=== PATIENT | female | born 1950 | race Caucasian/White ===

== ENCOUNTER → 2016-08-13 | Outpatient (CLI) | payer OTHER ==
--- NOTE | 2016-08-13 09:34 | DX ---
Lumbar Spine, Two Views History: One month follow up post surgery. Comparison: Intraoperative fluoroscopy July 12, 2016. Lumbar spine July 10, 2016. Findings: Interspinous clamps have been placed at L1-L2, L2-L3 and L4-L5. There is 3 mm of retrolisth esis of L1 on L2, 8 mm of anterolisthesis of L4 on L5 and 6 mm of anterolisthesis of L5 on S1 that ar e stable. Dextroscoliosis of the thoracolumbar junction is stable. Retrolisthesis of L3 on L4 is stab le. Moderate vertebral spondylosis, most prominent from L1 through L3 and at L4-L5, is stable. Modera te to severe facet hypertrophy from L2 through S1 is stable. Impression: Interspinous fixation from L1 through L3 and at L4-L5, with otherwise stable appearance o f the lumbar spine.
== END ==
LOC: FIMAGING 09:00
PROVIDERS: ATTEND Orthopaedic Surgery Orthopaedic Surgery of the Spine
DX: Z98.1 Arthrodesis status (principal)

== ENCOUNTER → 2016-10-01 | Outpatient (CLI) | payer OTHER | LOC: FIMAGING 12:56 | PROVIDERS: ATTEND Orthopaedic Surgery Orthopaedic Surgery of the Spine | DX: Z09 Encounter for follow-up examination after completed treatment for conditions other than malignant neoplasm (principal); Z98.890 Other specified postprocedural states; M43.16 Spondylolisthesis, lumbar region ==

== ENCOUNTER → 2017-01-30 | Outpatient (CLI) | payer OTHER | LOC: FIMAGING 08:38 | PROVIDERS: ATTEND Orthopaedic Surgery Orthopaedic Surgery of the Spine | DX: M41.86 Other forms of scoliosis, lumbar region (principal); M47.896 Other spondylosis, lumbar region; M43.16 Spondylolisthesis, lumbar region; Z98.1 Arthrodesis status ==

== ENCOUNTER 2017-04-04 09:42 | Observation (INO) | payer OTHER ==
--- NOTE | 2017-04-04 10:22 | CPEKG ---
Heart Rate: 49 RR Interval: 1224 P-R Interval: 156 QRSD Interval: 84 QT Interval: 452 QTC Interval: 409 P [place]: 60 QRS [place]: 36 T Wave [place]: 33 EKG Severity - OTHERWISE NORMAL ECG - EKG Impression: SINUS BRADYCARDIA Electronically Signed By: Marcos Montes 04-Apr-2017 15:55:36
[2017-04-04 10:47] LABS: % IMMATURE GRANULYOCYTES 0.3 % (0.0-1.1); ABSOLUTE IMMATURE GRANULOCYTES 0.01 10^3/uL (0.00-0.10); ADD DIFF? NO; ADD MORPH? NO; ADD SCAN? NO; ATYPICAL LYMPHOCYTE FLAG 0 (0-99); FRAGMENT RBC FLAG 0 (0-99); HEMATOCRIT 36.7 % (38.0-47.0); HEMOGLOBIN 12.6 g/dL (12.6-16.3); LEFT SHIFT FLG 0 (0-99); LIPEMIA HEMOLYSIS FLAG 90 (0-99); MEAN CELL HEMOGLOBIN 31.6 pg (27.9-34.1); MEAN CELL HEMOGLOBIN CONCENTR. 34.3 g/dL (32.4-36.7); MEAN PLATELET VOLUME 9.3 fL (8.7-11.7); PLATELET CLUMPS FLAG 10 (0-99); PLATELET COUNT 338 10^3/uL (150-400); RED BLOOD CELL COUNT 3.99 10^6/uL (4.18-5.33); RED CELL DISTRIBUTION WIDTH 13.6 % (11.5-15.2)
[2017-04-04 11:01] LABS: ANION GAP 10 mEq/L (8-16); CALCIUM 9.4 mg/dL (8.5-10.4); CARBON DIOXIDE 25 mEq/l (22-31); CHLORIDE 94 mEq/L (97-110); CREATININE 0.7 mg/dL (0.6-1.0); GLOMERULAR FILTRATION RATE > 60; GLUCOSE 77 mg/dL (70-100); POTASSIUM 3.8 mEq/L (3.5-5.2); SODIUM 129 mEq/L (134-144)
[2017-04-04 11:13] LABS: TROPONIN I < 0.012 ng/mL (0.000-0.034)
[2017-04-04] MEDS ORDERED: ACETAMINOPHEN 500 MG TAB PO ONE (12:14)
[2017-04-04 13:10] LABS: COLOR COLORLESS; LEUKOCYTE ESTERASE,URINE NEGATIVE (NEGATIVE); NITRITE,URINE NEGATIVE (NEGATIVE)
[2017-04-04] MEDS ORDERED: ONDANSETRON DISINTEGRATING 4 MG TAB PO PRN (13:29)
[2017-04-04] MEDS ORDERED: ACETAMINOPHEN 325 MG TAB PO PRN (13:29)
[2017-04-04] MEDS ORDERED: ONDANSETRON 4 MG/2 ML VIAL IVP PRN (13:29)
[2017-04-04] MEDS ORDERED: OXYCODONE/APAP 5/325 TAB PO PRN (13:39)
--- NOTE | 2017-04-04 14:16 | EDPHY ---
H & P Time Seen by Provider: 04/04/17 10:23 HPI/ROS: CHIEF COMPLAINT: Headache, facial numbness, diarrhea HISTORY OF PRESENT ILLNESS: 67-year-old female presents to the emergency department by private vehicle complaining headache that woke her up yesterday morning. She describes severe frontal headache. No visual changes. No neck pain. No reported trauma. She states last evening she developed some facial numbness to the left lower chin extending into the left cheek. When she woke up this morning she had persisting headache, persisting facial numbness, and then her left eye was twitching. She presented to the emergency department for evaluation. She has had some cramping abdominal pain intermittently over last few days. She had some watery diarrhea as well. No blood in her stools. No vomiting. No chest pain or difficulty breathing. No known fevers. No recent travel. REVIEW OF SYSTEMS: Constitutional: No fever, no chills. Eyes: No double or blurry vision. ENT: No sore throat. Respiratory: No cough, no shortness of breath. Cardiac: No chest pain. Gastrointestinal: Diarrhea, abdominal cramping as above. No vomiting. Genitourinary: No dysuria. Musculoskeletal: No neck or back pain. Skin: No rashes. Neurological: headache. Past Medical/Surgical History: Orthopedic surgery, ischemic colitis, rheumatoid arthritis, heart murmur Social History: and lives in [place] Smoking Status: Never smoked Physical Exam: General Appearance: Alert, no distress. Afebrile. Nontoxic appearing. Eyes: Pupils equal and round. Extraocular motions are all intact. ENT: Mouth: Mucous membranes moist. Respiratory: No wheezing, rhonchi, or rales, lungs are clear to auscultation. Cardiovascular: Regular rate and rhythm with 2/6 systolic ejection murmur. Gastrointestinal: Abdomen is soft and nontender, no masses, no rebound or guarding, bowel sounds normal. Neurological: Alert and oriented x 3, cranial nerves II through XII grossly intact with the exception of slightly decreased sensation to light touch to the left lower cheek. Skin: Warm and dry, no rashes. Musculoskeletal: Nontender to palpate along the cervical, thoracic or lumbar spine. Neck is supple. Extremities: Full range of motion and no peripheral edema. Upper and lower extremities of equal strength bilaterally. Psychiatric: Patient is oriented X 3, there is no agitation. Constitutional: Initial Vital Signs Temperature (C) 36.7 C 04/04/17 09:44 Heart Rate 60 04/04/17 09:44 Respiratory Rate 18 04/04/17 09:44 Blood Pressure 129/81 H 04/04/17 09:44 O2 Sat (%) 95 04/04/17 09:44 O2 Delivery Mode Room Air Allergies/Adverse Reactions: No Known Allergies Allergy (Verified 07/09/16 12:44) Home Medications: Medication Instructions Recorded Cholecalciferol Vit D3 [Vitamin D3 1,000 units PO HS 04/04/17 (*)] Diclofenac Sodium [Voltaren 75 MG 75 mg PO DAILY PRN 04/04/17 (*)] Estradiol [Estrace Vaginal (*)] 1 gm VG HS PRN 04/04/17 FLUoxetine [Prozac 20 MG (*)] 40 mg PO HS 04/04/17 Herbals/Supplements -Info Only 1 ea PO DAILY 04/04/17 Hydrochlorothiazide [HCTZ (*)] 25 mg PO DAILY PRN 04/04/17 Leflunomide [Arava 20 mg (*)] 20 mg PO HS 04/04/17 Dukedom-3 Fatty Acids [Fish Oil 1000 1,000 mg PO BID 04/04/17 mg (*)] Zaleplon [ZALEPLON] 10 mg PO HS PRN 04/04/17 Medical Decision Making - Diagnostics Imaging Results: Imaging Impressions Head CT 04/04/17 10:42 Impression: Normal. Results called and discussed with Melyssa Villanueva at 04/04/2017 11:44. Imaging: Discussed imaging studies w/ call center assistant Radiologist ED Course/Re-evaluation: 67-year-old female presents to the emergency department with headache, facial numbness and diarrhea. Laboratory studies reveal normal white blood cell count. Her sodium is slightly low at 129. She has been hyponatremic in the past. The case was discussed with Dr. Mckenzie, secondary supervising physician, who did not directly evaluate the patient but agrees with treatment plan. CT scan of head without contrast reveals nothing acute. Because the patient continues to have ongoing headache and left-sided facial numbness, I was concerned about possible TIA. The patient will be admitted to hospitalist. I spoke with Dr. Marcos Campbell, he recommended ordering bilateral carotid Doppler ultrasound and echocardiogram. Carotid Doppler ultrasound was normal. This was reported to me by Dr. Wilner Freitas at 2:13 p.m.. Differential Diagnosis: Headache including but not limited to subarachnoid hemorrhage, migraine headache , tension headache and infectious causes such as meningitis, pharyngitis and sinusitis. - Data Points Laboratory Results: Laboratory Results 04/04/17 10:20 04/04/17 10:20 04/04/17 04/04/17 10:20 10:20 WBC 3.74 10^3/uL L 10^3/uL (3.80-9.50) RBC 3.99 10^6/uL L 10^6/uL (4.18-5.33) Hgb 12.6 g/dL g/dL (12.6-16.3) Hct 36.7 % L % (38.0-47.0) MCV 92.0 fL fL (81.5-99.8) MCH 31.6 pg pg (27.9-34.1) MCHC 34.3 g/dL g/dL (32.4-36.7) RDW 13.6 % % (11.5-15.2) Plt Count 338 10^3/uL 10^3/uL (150-400) MPV 9.3 fL fL (8.7-11.7) Neut % (Auto) 54.3 % % (39.3-74.2) Lymph % (Auto) 26.5 % % (15.0-45.0) Jay % (Auto) 12.8 % % (4.5-13.0) Eos % (Auto) 4.8 % % (0.6-7.6) Baso % (Auto) 1.3 % % (0.3-1.7) Nucleat RBC Rel Count 0.0 % % (0.0-0.2) Absolute Neuts (auto) 2.03 10^3/uL 10^3/uL (1.70-6.50) Absolute Lymphs (auto) 0.99 10^3/uL L 10^3/uL (1.00-3.00) Absolute Monos (auto) 0.48 10^3/uL 10^3/uL (0.30-0.80) Absolute Eos (auto) 0.18 10^3/uL 10^3/uL (0.03-0.40) Absolute Basos (auto) 0.05 10^3/uL 10^3/uL (0.02-0.10) Absolute Nucleated RBC 0.00 10^3/uL 10^3/uL (0-0.01) Immature Gran % 0.3 % % (0.0-1.1) Immature Gran # 0.01 10^3/uL 10^3/uL (0.00-0.10) Sodium 129 mEq/L L mEq/L (134-144) Potassium 3.8 mEq/L mEq/L (3.5-5.2) Chloride 94 mEq/L L mEq/L (97-110) Carbon Dioxide 25 mEq/l mEq/l (22-31) Anion Gap 10 mEq/L mEq/L (8-16) BUN 12 mg/dL mg/dL (7-23) Creatinine 0.7 mg/dL mg/dL (0.6-1.0) Estimated GFR > 60 Glucose 77 mg/dL mg/dL (70-100) Calcium 9.4 mg/dL mg/dL (8.5-10.4) Troponin I < 0.012 ng/mL ng/mL (0.000-0.034) Medications Given: Discontinued Medications Acetaminophen (Tylenol) 1,000 mg PO EDNOW ONE Stop: 04/04/17 12:15 Last Admin: 04/04/17 12:59 Dose: 1,000 mg Departure - Departure Disposition: Home, Routine, Self-Care Clinical Impression: Facial numbness, Hyponatremia Headache Qualifiers: Headache type: unspecified Headache chronicity pattern: acute headache Intractability: not intractable Qualified Code(s): R51 - Headache Diarrhea Qualifiers: Diarrhea type: unspecified type Qualified Code(s): R19.7 - Diarrhea, unspecified Condition: Good
--- NOTE | 2017-04-04 14:41 | GHP ---
[f rep st] HISTORY AND PHYSICAL DATE OF ADMISSION: 04/04/2017 CHIEF COMPLAINT: Left facial numbness. HISTORY OF PRESENT ILLNESS: This is a 67-year-old female who reports she is having left facial numb ness. The history of this begins approximately 2 days [employer] when she had abdominal cramping following eating an apple. The abdominal cramping persisted for 1-2 hours, at which time, she had a loose st ool, then had a 2nd loose stool, and then had 3 or 4 more loose watery stools without signs of blood . The cramping seemed to subside at that time. She slept well the following night. One day [employer] yareli marie woke and had a headache in the frontal region. She rates it between a 5 and 7/10, deep and aching , not associated with nausea, vomiting, diplopia, or neurologic symptoms. The headache waxed and wa felisa throughout the day. She continued to have some cramping abdominal pain that day, but did not mo ve her bowels. The morning before admission at 2 a.m. she then awoke and noted she had a tingling a nd kind of burning sensation on the left side of her face. She was concerned she might be having a stroke, so she noted that she did not have left hand or left foot weakness. The burning comes and g oes, but had been persistent and persisted up until the time of admission. She denies any trauma to the face, change in hearing, ringing in her ears, no nasal drainage, recent URI or cough, and no cl ear diplopia or vision disturbance. Her has also noted that she has not had a speech proble m nor any difficulty ambulating. It is of special note that she usually does not have headaches and has only had headaches intermittently in the last 2 months for unknown reasons. Recently this new headache has been associated with low back pain, yet she attributed her low back pain to lifting box es and helping her daughter move. The patient does have a history of low back pain and is status po st 2 surgeries to her lower back. She had an L4-L5 synovial cyst removal by Dr. Garces in 2005. She then in 2015 had an L1 through L4 laminectomy and stabilization by Dr. Beck. PAST MEDICAL HISTORY: 1. Osteopenia for many years. 2. Rheumatoid arthritis currently treated with leflunomide. 3. Ischemic bowel episode in 12/2014. 4. Depression. PAST SURGICAL HISTORY: 1. Herniorrhaphy. 2. Right-sided bunionectomy. 3. Left shoulder surgery. 4. Right synovial L4-L5 cyst removal in 2005. 5. Left hip arthroplasty. ALLERGIES: No known allergies. CURRENT MEDICATIONS: In the EMR and will be reconciled when available. REVIEW OF SYSTEMS: Recently the patient has felt well up until the onset of this cramping abdominal pain. She denies recent upper respiratory infection, sore throat, cough. She usually does not suf itz from headaches. The low back pain came on after doing exercise. She denies prior history of co ronary artery disease, cardiac rhythm disturbance, or episodes of syncope, dizziness, or vertigo. T here is no prior history of pulmonary disease and no use of inhalers. The abdominal history is as n oted above. She has never had an episode of GI bleeding. : She denies dysuria, frequency, or pr ior renal impairment or kidney infections. MUSCULOSKELETAL: Significant for rheumatoid arthritis w ithout a recent flare. PSYCHIATRIC: History of depression, but she has never been hospitalized or severely impaired. SOCIAL HISTORY: She is , accompanied by her today. She has never smoked. She drink s alcohol socially and never in abuse. She does not use marijuana or recreational drugs. PHYSICAL EXAMINATION: GENERAL: This is a pleasant, alert female who appears in no distress but young s complain that the left side of her face feels different than the right and she describes it as num bness. Her speech is quite articulate at a normal rate, and easy to understand. She denies tongue difficulty, swallowing difficulties, but reports that maybe the left side of her tongue is numb. WES SIGNS: Normal. Blood pressure, pulse, respirations are normal. She has adequate oxygenation o n room air. HEENT: No signs of trauma. The face is symmetrical and her smile and speech are koffi l. Tympanic membranes could not be seen as the otoscope was nonfunctional in the emergency departme nt, although pull of each pinna resulted in no pain. The left TMJ joint was nontender to palpation, no overlying erythema, and had no clicking or pain or tenderness with opening of the jaw. The jaw articulates normally. Tongue, buccal mucosa are normal. There are no oral lesions. NECK: Supple without meningismus. LUNGS: Clear to P and A without wheezing or rales. HEART: Singular S1, S2. Soft CHELSI along the LSB is noted, grade 1/6. No AI is appreciated. No precordial heave. ABDOMEN: Nontender, benign, without masses, tenderness, organomegaly. EXTREMITIES: No edema, cyanosis, or clubbing. NEUROLOGIC: An oriented x3, pleasant and articulate female without speech difficulties. Cranial nerves 2-12 are intact to specific testing. Motor and sensory function are intact. The on ly abnormality that is subjective is that the left side of her face in the lower face she says feels differently and slightly numb than the right side of her face, representing a peripheral 7th nerve issue. LABORATORY: Her CBC is normal except for a very slightly low white count at 3700. Her chemistry pa remy shows hyponatremia with a sodium of 129 with a normal troponin level and glucose. Renal functio n is normal. Urinalysis is entirely clear. ECG shows a sinus bradycardia with normal DC, QRS inter vals, and except for the bradycardia is normal to my reading. I have discussed the matter with the emergency physician seeing the patient and interviewed the patient. A carotid Doppler ultrasound is being ordered. CT scan of the head has also been reviewed by myself and shows no signs of intracranial hemorrhage, mass effect, or infarction. The x-ray was reviewed by myself on the PACS system. ASSESSMENT: Acute left-sided facial numbness. The distribution of this would represent a periphera l 7th nerve palsy possibly, or the onset of a herpes zoster. At this point, there is no rash to rep resent the latter and the finding of numbness on the left side of her face is subjective, although i t is persistent. In addition, she normally does not have headaches but is reporting she is having h eadaches. With the complex of a headache, left-sided facial numbness without other motor findings a nd some low back pain, could represent a problem of a sentinel leak. Following that line of nataly quinteros, her headache is present but not very severe, nor is it at the base of her skull; it is in the fro nt in the ethmoid region. Currently, this constellation of symptoms does not fit well together. Ne urology will be consulted as to whether further evaluation for cerebral ischemia should be pursued. Chronic medical problems include her rheumatoid arthritis, which is currently under treatment, and her depression. PLAN: The patient will be admitted to observation status. Neurology consult will be obtained. Her code status is full and her power of christmas tree farm worker is her . The admission required 55 minutes. /[id number]/MODL
[2017-04-04] MEDS ORDERED: GADOBUTROL 10 ML VIAL IVP ONE (16:48)
[2017-04-04] MEDS ORDERED: ESTRADIOL 42.5 GM CRTUBE VG PRN (16:52)
[2017-04-04] MEDS ORDERED: DICLOFENAC SODIUM 75 MG TAB PO PRN (16:52)
[2017-04-04 17:01] LABS: ALANINE AMINOTRANSFERASE 39 IU/L (9-52); ALBUMIN 3.1 g/dL (3.5-5.0); ALKALINE PHOSPHATASE 42 IU/L (38-126); ANION GAP 5 mEq/L (8-16); ASPARTATE AMINOTRANSFERASE 30 IU/L (14-46); BILIRUBIN,TOTAL 0.8 mg/dL (0.1-1.4); CARBON DIOXIDE 24 mEq/l (22-31); CHLORIDE 99 mEq/L (97-110); CREATININE 0.7 mg/dL (0.6-1.0); GLOMERULAR FILTRATION RATE > 60; GLUCOSE 125 mg/dL (70-100); POTASSIUM 3.7 mEq/L (3.5-5.2); SODIUM 128 mEq/L (134-144); TOTAL PROTEIN 5.5 g/dL (6.3-8.2)
--- NOTE | 2017-04-04 18:01 | GCON ---
[f rep st] CONSULTATION REASON FOR CONSULTATION: The patient is a 67-year-old woman, who I am asked to see in neurologic co nsultation from Dr. Campbell. She says that she has a chief complaint of abnormal sensation in her l eft face. History is obtained from the patient directly, who is a very good historian, as well as stephanie eng of the medical records. She does not have any history of neurologic problems. She came to the emergency department yesterda y afternoon and was complaining of some headache and facial numbness and had some diarrhea. She had a headache that occurred the morning prior to her coming to the hospital. She says she got up from bed to go to the bathroom and felt an acute burning pain in her left perioral region and into the l eft cheek. She says it was like being on fire. That lasted a few minutes and was immediately follo wed by a sense of numbness or tingling. She equates this to the phenomenon of getting Novocain. Hernan marie immediately checked her face in the mirror to see if there was any abnormal facial movement or wea kness and she never saw any. She went to sleep as the pain had fairly quickly decreased and then wo ke up this morning and noticed that it was still numb in that area and felt abnormal to touch. The head pain has never been severe. It is in the left periorbital region. Sometimes she has a little bit of twitching she has noticed around the left eyelid. No change in speech or swallowing. She says that about a week ago she had a rash on her chin and went to the car body mechanic and did not have a specific diagnosis for that but she also had a prominent cold sore in her left upper lip, whi ch she has had once before. That has since resolved. She has not described any other rash since . There has not been confusion. She has not had fever or chills. She has had some abdominal liudmila n over the last 48 hours and some watery diarrhea. REVIEW OF SYSTEMS: A 10-point Review of Systems completed and unremarkable except for that noted ab ove. No clear-cut alleviating or exacerbating factors and for the most part, symptoms are fairly mi ld now. PAST MEDICAL HISTORY: Notable for rotator cuff problems on the left, spine disease with prior surge ry, ischemic colitis, rheumatoid arthritis treated with leflunomide, heart murmur. SOCIAL HISTORY: She is and lives in [place]. No smoking or alcohol abuse. FAMILY HISTORY: Noncontributory for the most part. PHYSICAL EXAM: VITAL SIGNS: Blood pressure is 117/73, pulse of 56, respirations 18, temperature 36 .6. GENERAL: She is a healthy-appearing woman, lying in the bed in no acute distress. NECK: Supp le with no bruits or masses. CARDIAC: Has a 2/6 systolic murmur. HEENT: There is no facial rash or oropharyngeal lesions. I can't see evidence of the old cold sore. NEUROLOGIC: She is awake, al ert, and attentive. Fully oriented with normal cognition and language skills. Pupils are 2 mm and reactive. Extraocular movements intact. Normal facial strength. There is a decreased sensory perc eption in the left maxillary and mandibular divisions of the trigeminal nerve with touch and tempera ture being slightly different. Hearing is preserved. Palate elevates symmetrically. Tongue protru josefina midline. MOTOR: Reveals normal muscle bulk and tone and 5/5 strength except for the mechanical weakness of the proximal left upper extremity from old left rotator cuff problems. No sensory loss in the extremities. No ataxia on [id number]. Reflexes are 1+. LABORATORY STUDIES: White count of 3700. Sodium of 129, chloride 94. Urinalysis is clear. Her head CT is normal. Carotid ultrasound shows no hemodynamically significant stenoses or ulcers o r plaquing. IMPRESSION: The patient is giving symptoms of acute left trigeminal nerve dysfunction starting last evening with a searing burning sensation for a few minutes and then persisting tingling or numbness . This presentation is probably not related to acute cerebral ischemia in the brainstem with lack o f any other findings and has aspects consistent with an acute trigeminal neuropathy or neuralgia. T he fact that she had a cold sore week ago in the left upper lip and perhaps some rash on the chin of uncertain cause, suggest this might be an acute viral syndrome of a herpes virus. I am not sure wh at to make of the gastrointestinal complaints. Leflunomide has immunosuppressant effects and could put her at increased risk for developing viral syndromes. I would not say this fits the criteria fo r herpes zoster but we should also monitor for any changes in the skin with a new rash appearing in the trigeminal distribution. For now, I would like to get a brain MRI, just to confirm there is no specific, unique pathology of the left trigeminal nerve but is probably purely inflammatory rather than structural in origin and h opefully will just resolve. There is not currently an indication for treatment with medications suc h as carbamazepine and acute antiviral therapy is not clearly indicated at this stage. I spoke to t rosa patient in detail and explained this condition and she seems comfortable with her understanding. I will follow up based on the results of MRI. Total unit time of 70 minutes was spent, greater than 50% of the time counseling and coordination of care. /[id number]/MODL
[2017-04-04] MEDS ORDERED: CHOLECALCIFEROL VIT D3 1,000 UNITS TAB PO SCH (21:00)
[2017-04-04] MEDS ORDERED: LEFLUNOMIDE 20 MG TAB PO SCH (21:00)
[2017-04-04] MEDS ORDERED: FLUoxetine 20 MG CAP PO SCH (21:00)
[2017-04-04] MEDS: OMEGA-3 FATTY ACIDS 1,000 MG CAP PO SCH (21:43)
[2017-04-04] MEDS: ZOLPIDEM TARTRATE 5 MG TAB PO PRN (21:43)
[2017-04-05] MEDS: ZOLPIDEM TARTRATE 5 MG TAB PO PRN (03:48)
[2017-04-05 03:53] VITALS: O2SAT 92
[2017-04-05 07:51] VITALS: BP 94/56; PULSE 58; RESP 16; TEMP 98.8
[2017-04-05] MEDS: OMEGA-3 FATTY ACIDS 1,000 MG CAP PO SCH (08:08)
--- NOTE | 2017-04-05 08:35 | NEUROPROG ---
Assessment: The patient has not experienced a stroke. She has some left trigeminal neuropathy with paresthesias and decreased sensation and some mild involvement of the 7th nerve with fasciculations around the left eye and some enhancement on MRI of the 7th nerve indicative of mild inflammation. Hyper this point, there is not a clear-cut indication for any specific therapy other than observation and this can be done as an outpatient. The plan from my perspective would be follow-up with me as needed. She should talk to her search coordinator about the possibility of doing episodic Valtrex if there were recurrent cold sores determining if suppressive antiviral therapy would be appropriate or not. I would defer to that provider or primary care on that issue. She is followed by Nasrin Montanez as an outpatient. Exactly what accounts for the overall presentation remains uncertain, but the likelihood of something worse than a viral syndrome or inflammatory process is unlikely. Lymphomas and other causes for cranial neuropathies are considered low probability, but any failure for this to resolve or progression of symptoms could warrant repeat imaging or even CSF analysis. I just do not believe that is needed at this point and the patient is comfortable with all of this. Total unit time 25 minutes with greater than 50% of the time counseling and coordination of care as outlined above. Subjective: The patient reports that she still has some twitching in the left eyelid at times and some mild numb sensations in left face and upper gumline. There is no significant pain and no other new symptoms. Objective: Vital Signs Temp Pulse Resp BP Pulse Ox 37.1 C 58 L 16 94/56 L 92 04/05/17 07:50 04/05/17 07:50 04/05/17 07:50 04/05/17 07:50 04/05/17 07:50 Laboratory Results 04/04/17 16:31 04/04/17 04/05/17 04/06/17 05:59 05:59 05:59 Intake Total 550 Output Total 800 Balance -250 Unremarkable exam at this point other than the decreased sensation in the left face and occasional fasciculations in the left orbicularis oculus. The brain MRI does not show any brain lesions to explain symptoms, but there is some enhancement of the left 7th nerve indicating some mild inflammation. This would not explain facial numbness because that is the distribution of the trigeminal nerve, but could account for why there are some fasciculations. Allergies/Adverse Reactions: No Known Allergies Allergy (Verified 07/09/16 12:44)
--- NOTE | 2017-04-05 10:11 | ECHO ---
[id number] + + [address] : : [place] [address] : : [phone] + + Adult Echocardiographic Report + -----+ :Name: RADHA CARTWRIGHT JStudy Date: 04/04/2017 02:04 PM : : Hospital Admission Number: [id number] Location : 5: :: 1950 Gender: Female Height: 63 in : :Age: 67 yrs Race: WH Weight: 126 lb : :Reason For Study: Eval LV Fx : : BSA: 1.6 meters2 : :History: Murmur, Left face numbness : + -----+ MMode/2D Measurements \T\ Calculations IVSd: 0.56 cm LVIDd: 5.0 cm FS: 40.6 % Ao root diam: 3.1 cm LVPWd: 0.84 cm LVIDs: 3.0 cm EDV(Teich): 119.3 ml ACS: 2.0 cm ESV(Teich): 34.4 ml EF(Teich): 71.1 % Normal Measurement Values: + + :LVIDd (3.5-5.7cm) IVSd (0.6-1.1cm) LVPWd (0.6-1.1cm) Aortic Root (2.0-3.7cm)Left Atrium (1.5-4.0cm): :LV Vol(d) (76-115ml) LV Vol(s) (29-48ml) Ejec Fraction (50-65%)PV Jemal (0.6- 1.2m/s) TV Jemal (0.4-1.0m/s) : :MV E Jemal (0.8-1.0m/s)MV A Jemal (0.3-1.0m/s)LVOT Jemal (0.7-1.2m/s) Asc Ao Jemal ( 0.9-1.8m/s) : + + Doppler Measurements \T\ Calculations MV E max jemal: Ao V2 max: LV V1 max: PA V2 max: 85.9 cm/sec 103.0 cm/sec 96.7 cm/sec 69.2 cm/sec MV A max jemal: Ao max P.2 mmHgLV V1 max PG: PA max P.2 cm/sec 3.7 mmHg 1.9 mmHg MV E/A: 1.4 TR max jemal: 246.0 cm/sec TR max P.2 mmHg RAP systole: 5.0 mmHg RVSP(TR): 29.2 mmHg Left Ventricle The left ventricle is normal in size and function. There is normal left ventricular wall thickness. The left ventricular ejection fraction is normal. Ejection Fraction = 72%. There is Doppler evidence for diastolic dysfunction. The left ventricular wall motion is normal. Right Ventricle The right ventricle is normal in size and function. Atria The left atrial size is normal. Right atrial size is normal. Mitral Valve The mitral valve is normal in structure and function. There is no mitral regurgitation noted. Tricuspid Valve Normal tricuspid valve. There is mild tricuspid regurgitation. Right ventricular systolic pressure is normal. Aortic Valve The aortic valve is normal in structure and function. The aortic valve opens well. The aortic valve is trileaflet. There is no aortic stenosis. There is no aortic insufficiency. Pulmonic Valve The pulmonic valve is not well visualized. There is no pulmonic valvular regurgitation. Great Vessels The aortic root is normal size. Pericardium/Pleural There is no pericardial effusion. Conclusion A complete two-dimensional transthoracic echocardiogram was performed (2D, M-mode, Doppler and color flow Doppler). (1) Left ventricular systolic ejection fraction was normal (>70%) - normal wall motion (2) No left ventricular hypertrophy (3) Diastolic dysfunction was present (4) Normal right ventricular size and function (5) Normal atrial dimensions (6) Grossly normal mitral valve (7) Trileaflet aortic valve without sclerosis or insufficiency (8) Mild tricuspid regurgitation - RVSP was within normal limits (9) Poor visualization of the pulmonic valve (10) No comparison echocardiograms Final Reading Physician: Kym Giron signed on 04/05/2017 10:09 AM Ordering Physician: JANESSA CEVALLOS Performed By: Fletcher Levine, CS
--- NOTE | 2017-04-05 12:04 | GDS ---
[f rep st] DISCHARGE SUMMARY NEW AND ACUTE DIAGNOSES ON THIS ADMISSION: 1. Acute 7th and 5th nerve neuritis with left-sided facial tingling. 2. Chronic medical problems. 3. She has rheumatoid arthritis, currently under treatment with leflunomide. CONSULTATION: Neurology. PROCEDURE: 1. MRI of the brain showing left descending 7th cranial neuritis. Normal left trigeminal nerve. 2. Echocardiogram showing a normal left ventricular ejection fraction 70%. Diastolic dysfunction i s present. RVSP is normal. No valvular abnormalities noted. HOSPITAL COURSE: A 67-year-old female presented with left-sided facial tingling without other neuro logic deficits. She had a headache for the [address] scan of the head was normal. MRI o f the brain with contrast showed left 7th cranial nerve neuritis with a normal left 5th nerve. Pitts tid Doppler studies showed no hemodynamic significant stenosis by systolic velocity criteria. Consu ltation with Neurology indicated that the left facial numbness and tingling was in fact present, but seemed to be isolated. Historically there did not seem to be much progression, and consultation in dicated that there was no specific reason to pursue further evaluation, as the etiology is unknown, and it is expected that it should resolve. Possibilities are that if her headache would worsen or t he sensory and/or motor deficit should worsen, although she has no motor deficit at this time, if th telly should worsen, then further evaluation would be warranted, perhaps with a lumbar spine puncture. Neurology felt that there was currently no indication for treatment with medications, nor is there any clear indication for acute antiviral therapy. 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 This occurs appro ximately once a year, and does not seem to be an appropriate indication for chronic antiviral suppre ssive therapy. DISCHARGE MEDICATIONS: The same as her admission medications and are as follows: Zaleplon 10 mg h. s., leflunomide 20 mg h.s., HCTZ 25 mg p.r.n. swelling and edema, Prozac 40 mg h.s., vitamin D3 1,00 0 units h.s., omega-3 fatty acids 1,000 mg p.o. b.i.d., herbal supplementation, Estrace cream used p .r.n., and Voltaren 75 mg p.o. daily p.r.n. arthritis pain. PLAN: The patient will follow up with her PCP, Dai Montanez, in approximately 1-2 weeks just to julian pederson on the progression of the problem. She also will follow up with Dr. Darin Fernandez if the prob blanca should perceive to be becoming worse. Matters to be addressed at the first followup: Assess the degree of her headache and the sensory fu nction of the left side of her face. At discharge, she has no motor deficit, but only a sensation o f numbness on the left side of her face, on the lower face, not the upper face, consistent with a pe ripheral 7th nerve or trigeminal nerve involvement, although the 7th nerve is the only one showing i nflammation on the MRI scan. TIME: This discharge required 45 minutes, greater than 50% to primary counselor and coordinate and explained all questions to the patient and her . All questions were answered. /[id number]/MODL
--- NOTE | 2017-04-06 09:08 | ASDISCHSUM ---
Discharge Information Plan Status:Home with No Needs Medically Cleared to Leave: Discharge Date:04/05/2017 11:53 AM CM D/C Disposition: ADT D/C Disposition:Home, Routine, Self-Care Projected Discharge Date:04/05/2017 11:53 AM Transportation at D/C: Discharge Delay Reason: Follow-Up Date:04/05/2017 11:53 AM Discharge Slot: Final Diagnosis: Placement Information Patient Contact Information Contact Name:HEAVEN Relationship: Address:[address] City:[place] Alternate Phone: [facility]/Zip Code:[place] [address] Email: Financial Information Financial Class:Medicare Advantage Plans Primary Plan Desc:NATI SHANNON MEDICARE Primary Plan Number:[id number] Secondary Plan Desc: Secondary Plan Number: Assessment Information Intervention Information Intervention Type:*HORACE-Signed Date of Service:04/05/2017 10:28 AM Patient Type:Observation Staff Member:Janet Holman Hours: Discipline: Severity: Comment:
== END 2017-04-05 11:53 | disposition home or self-care (01) ==
LOC: F3N 14:41
PROVIDERS: ADMIT Internal Medicine Pulmonary Disease; ATTEND Internal Medicine Pulmonary Disease
DX: G51.0 Bell's palsy (principal); G51.8 Other disorders of facial nerve; M06.9 Rheumatoid arthritis, unspecified; R19.7 Diarrhea, unspecified; E87.1 Hypo-osmolality and hyponatremia; M85.80 Other specified disorders of bone density and structure, unspecified site
CPT/HCPCS: 70450; 70553; 93005; 93306; 93880; 99285; A9585; G0378

== ENCOUNTER → 2017-06-12 | Outpatient (CLI) | payer OTHER | LOC: FIMAGING 07:54 | PROVIDERS: ATTEND Physician Assistant | DX: Z12.31 Encounter for screening mammogram for malignant neoplasm of breast (principal) | CPT/HCPCS: G0202 ==

== ENCOUNTER 2018-12-03 09:10 | Inpatient (IN) | payer OTHER ==
--- NOTE | 2018-12-03 07:12 | PDHPUP ---
History & Physical Update H&P update statement: This history and physical update is based on an assessment of the patient which was completed after admission or registration (within 24 hours), but prior to the surgery/procedure. H&P update: H&P reviewed & patient examined, no change in patient's condition since H&P completed
[~2018-12-03 09:10] MED LIST: ROPIVACAINE 0.2% 80 MG, EPINEPHrine 0.2 MG, KETOROLAC TROMETHAMINE 30 MG in SYRINGE 0 ML IU ONE; TRANEXAMIC ACID 3,000 MG in NS (SYRINGE) 50 ML IRR ONE; TRANEXAMIC ACID 3,000 MG/50 ML BAG IRR ONE
[2018-12-03] MEDS ORDERED: FAMOTIDINE 20 MG TAB PO ONE (09:36)
[2018-12-03] MEDS ORDERED: ACETAMINOPHEN 325 MG TAB PO ONE (09:36)
[2018-12-03] MEDS ORDERED: ceFAZolin 2 GM/DEXTROSE 100 ML IV ONE (09:36)
[2018-12-03] MEDS ORDERED: DEXAMETHASONE 4 MG/ML VIAL IVP ONE (09:36)
[2018-12-03] MEDS ORDERED: LR 1,000 ML IV ONE (09:51)
[2018-12-03] MEDS ORDERED: fentaNYL 100 MCG/2 ML INJ ONE (10:11)
[2018-12-03] MEDS ORDERED: LIDOCAINE 2% 100 MG/5 ML SYR ONE (10:11)
[2018-12-03] MEDS ORDERED: DEXAMETHASONE 4 MG/ML VIAL ONE (10:11)
[2018-12-03] MEDS ORDERED: PROPOFOL/EMULSION 500 MG/50 ML BOTTLE IV ONE (10:11)
[2018-12-03] MEDS ORDERED: ONDANSETRON 4 MG/2 ML VIAL ONE (10:11)
[2018-12-03] MEDS ORDERED: BUPIVACAINE 0.5% 30 ML SDV ONE (10:25)
--- NOTE | 2018-12-03 10:51 | PDANEPAE ---
ANE History of Present Illness left hip djd here for L CHELLE ANE Past Medical History - Cardiovascular History Hx Hypertension: No Hx Arrhythmias: No Hx Chest Pain: No Hx Coronary Artery / Peripheral Vascular Disease: No Hx CHF / Valvular Disease: No Hx Palpitations: No - Pulmonary History Hx COPD: No Hx Asthma/Reactive Airway Disease: No Hx Recent Upper Respiratory Infection: No Hx Oxygen in Use at Home: No Hx Sleep Apnea: No Sleep Apnea Screening Result - Last Documented: Negative - Neurologic History Hx Cerebrovascular Accident: No Hx Seizures: No Hx Dementia: No Neurologic History Comment: spondylosis - Endocrine History Hx Diabetes: No - Renal History Hx Renal Disorders: No - Liver History Hx Hepatic Disorders: No - Neurological & Psychiatric Hx Hx Neurological and Psychiatric Disorders: Yes Neurological / Psychiatric History Comment: mild depression - Cancer History Hx Cancer: Yes Cancer History Comment: basal cell- mohs procedure on scalp - Congenital Disorder History Hx Congenital Disorders: No - GI History Hx Gastrointestinal Disorders: Yes Gastrointestinal History Comment: hx of ischemic colitis after previous surgery - Other Health History Other Health History: wears glasses. rhuematoid arthritis. osetoarthritis - Chronic Pain History Chronic Pain: Yes (left hip, back) - Surgical History Prior Surgeries: 2016 left bunionectomy. 07/12/16 l1-2, l2-3, l4-5 lami with VBK. 02/25/15 LEFT VENTRAL HERNIA REPAIR WITH NOVAK. [place] . right distal ulna shortened. right shoulder scope. lumbar discectomy l4-5. bunionectomy. mohs procedure 11/15. left rtc 05/26/14 ANE Review of Systems Review of Systems: - Exercise capacity METS (RN): 4 METS ANE Patient History - Allergies Allergies/Adverse Reactions: No Known Allergies Allergy (Verified 11/27/18 09:04) - Home Medications Home Medications: FLUoxetine [Prozac 20 MG (*)] 40 mg PO HS 04/04/17 [Last Taken 12/02/18 19:00] Herbals/Supplements -Info Only 1 ea PO DAILY 04/04/17 [Last Taken 11/20/18] Leflunomide [Arava 20 mg (*)] 20 mg PO HS 04/04/17 [Last Taken 12/02/18 19:00] - NPO status NPO Since - Liquids (Date): 12/02/18 NPO Since - Liquids (Time): 23:00 NPO Since - Solids (Date): 12/02/18 NPO Since - Solids (Time): 19:00 - Smoking Hx Smoking Status: Never smoked - Family Anes Hx Family Hx Anesthesia Complications: none ANE Labs/Vital Signs - Vital Signs Blood Pressure: 124/74 Heart Rate: 58 Respiratory Rate: 16 O2 Sat (%): 97 Height: 158.75 cm Weight: 60.328 kg ANE Physical Exam - Airway Neck exam: FROM Mallampati Score: Class 1 Mouth exam: normal dental/mouth exam - Pulmonary Pulmonary: no respiratory distress, no rales or rhonchi - Cardiovascular Cardiovascular: regular rate and rhythym, no murmur, rub, or gallop - ASA Status ASA Status: II ANE Anesthesia Plan Anesthesia Plan: GA with mask, spinal Total IV Anesthesia: Yes
[2018-12-03] MEDS ORDERED: MIDAZOLAM 2 MG/2 ML VIAL IVP ONE (10:52)
[2018-12-03] MEDS ORDERED: MIDAZOLAM 2 MG/2 ML VIAL ONE (10:58)
[2018-12-03] MEDS ORDERED: VANCOMYCIN 1 GM VIAL ONE (11:35)
[2018-12-03] MEDS ORDERED: PROPOFOL 200 MG/20 ML VIAL ONE (12:06)
[2018-12-03] MEDS ORDERED: ePHEDrine SULFATE 25 MG/5 ML SYR ONE (12:21)
[2018-12-03] MEDS ORDERED: PHENYLEPHRINE HCL 100 MCG/ML SYR ONE (12:21)
[2018-12-03] MEDS ORDERED: fentaNYL 100 MCG/2 ML INJ IVP PRN (12:29)
[2018-12-03] MEDS ORDERED: METOCLOPRAMIDE 10 MG/2 ML VIAL IVP PRN ×2 (12:29→12:48)
[2018-12-03] MEDS ORDERED: LR 500 ML IV PRN (12:29)
[2018-12-03] MEDS ORDERED: HYDROmorphONE/DILAUDID 1 MG/ML INJ IVP PRN (12:29)
[2018-12-03] MEDS ORDERED: oxyCODONE IR 5 MG TAB PO PRN (12:29)
[2018-12-03] MEDS ORDERED: MEPERIDINE 25 MG/0.5 ML AMP IVP PRN (12:29)
[2018-12-03] MEDS ORDERED: NALOXONE HCL 0.4 MG/ML INJ IVP PRN (12:29)
[2018-12-03] MEDS ORDERED: DIAZEPAM 10 MG/2 ML SYR IVP PRN (12:29)
[2018-12-03] MEDS ORDERED: ACETAMINOPHEN 500 MG TAB PO PRN (12:29)
[2018-12-03] MEDS ORDERED: MAGNESIUM HYDROXIDE 30 ML UDCUP PO PRN (12:48)
[2018-12-03] MEDS ORDERED: LACTULOSE 20 GM/30 ML UDCUP PO PRN (12:48)
[2018-12-03] MEDS ORDERED: ONDANSETRON 4 MG/2 ML VIAL IVP PRN (12:48)
[2018-12-03] MEDS ORDERED: DIPHENOXYLATE/ATROPINE LOMOTIL 1 TAB PO PRN (12:48)
[2018-12-03] MEDS ORDERED: PROMETHAZINE HCL 25 MG/ML INJ IVP PRN (12:48)
[2018-12-03] MEDS ORDERED: BISACODYL 10 MG SUPP PR PRN (12:48)
[2018-12-03] MEDS ORDERED: POLYETHYLENE GLYCOL 3350 17 GM PKT PO PRN (12:48)
[2018-12-03] MEDS ORDERED: PROMETHAZINE HCL 25 MG SUPPR PR PRN (12:48)
[2018-12-03] MEDS ORDERED: TEMAZEPAM 15 MG CAP PO PRN (12:48)
[2018-12-03] MEDS ORDERED: diphenhydrAMINE 25 MG CAP PO PRN (12:48)
[2018-12-03] MEDS ORDERED: ONDANSETRON DISINTEGRATING 4 MG TAB PO PRN (12:48)
--- NOTE | 2018-12-03 12:48 | POSTOPPROG ---
Post Op Note Date of Operation: 12/03/18 Surgeon: Jamie Santa Boat Master: Huong FAY Anesthesiologist: Dr. Bullock Anesthesia: Spinal Pre-op Diagnosis: left hip OA Post-op Diagnosis: same Indication: left hip pain Procedure: LTHA Findings: severe OA of left hip Inf/Abcess present in the surg proc area at time of surgery?: No EBL: 50-100
[2018-12-03] MEDS ORDERED: LR 1,000 ML IV SCH (13:00)
--- NOTE | 2018-12-03 13:14 | POSTANESTH ---
Post Anesthetic Evaluation Cardiovascular Status: Normal, Stable Respiratory Status: Normal, Stable Level of Consciousness/Mental Status: Can Participate in Eval, Alert and Oriented Pain Control: Adequate, Prn Tx Ordered Nausea/Vomiting Control: Adequate, Prn Tx Ordered Complications Possibly Related to Anesthesia: None Noted
[2018-12-03] MEDS ORDERED: oxyCODONE IR 5 MG TAB ONE (14:02)
--- NOTE | 2018-12-03 15:41 | SOAPPROG ---
SOAP Progress Note Assessment/Plan: Assessment: s/p left CHELLE, anterior approach - procedure earlier today Plan: Begin d/c planning - likely home tomorrow, will have the support of her at home Continue VTE ppx - aspirin, VICKI demarco, SCDs Continue oral pain medication Continue PT - anterior hip precautions, WBAT Subjective: Patient states her left hip feels sore and the pain medication is making her feel a bit drowsy. She is planning on going home tomorrow and will have the support of her at home. She denies SOB, CP, fever, chills. Objective: Vital Signs Temp Pulse Resp BP Pulse Ox 36.5 C 55 L 18 108/77 95 12/03/18 15:28 12/03/18 15:28 12/03/18 15:28 12/03/18 15:28 12/03/18 15:28 12/02/18 12/03/18 12/04/18 05:59 05:59 05:59 Intake Total 1010 Output Total 150 Balance 860 Patient resting comfortably in bed, no acute distress. Her is present in the room. LLE: Wound dressing is clean dry and intact. Mild edema at the left hip. Lower leg compartments are soft and nontender. She can actively DF and PF her left foot and great toe against resistance. Grossly NVI distally. ICD10 Worksheet Patient Problems: Problems Problem Status Onset Unilateral primary osteoarthritis, left hip Acute Diarrhea Acute Facial numbness Acute Headache Acute Hyponatremia Acute Lower GI bleed Acute
[2018-12-03] MEDS: oxyCODONE IR 5 MG TAB PO PRN ×3 (18:26→23:26)
[2018-12-03] MEDS: ACETAMINOPHEN 325 MG TAB PO SCH (18:26)
[2018-12-03] MEDS: ceFAZolin 2 GM/DEXTROSE 100 ML IV SCH (18:27)
[2018-12-03] MEDS: CYCLOBENZAPRINE 10 MG TAB PO PRN (19:58)
[2018-12-03] MEDS: SENNOSIDES/DOCUSATE SODIUM TAB PO SCH (19:58)
[2018-12-03] MEDS: ASPIRIN 81 MG CHEWABLE TAB PO SCH (19:58)
[2018-12-03] MEDS: FAMOTIDINE 20 MG TAB PO SCH (19:58)
[2018-12-03] MEDS ORDERED: LEFLUNOMIDE 20 MG TAB PO SCH (21:00)
[2018-12-03] MEDS ORDERED: FLUoxetine 20 MG CAP PO SCH (21:00)
--- NOTE | 2018-12-03 21:26 | PDMN ---
Medical Necessity Medical necessity: Pt meets inpt criteria per MD order and [facility] S-560, Hip Arthroplasty, A-2 days, MCR IP only list, op: L CHELLE. 68 y/o w/severe left hip OA admitted for CHELLE and post-op care, inpt pre-auth obtained. PMHx includes ischemic colitis after previous surgery, rheumatoid arthritis, osteoarthritis, chronic back/left hip pain, spondylosis, and mild depression.
[2018-12-04] MEDS: ACETAMINOPHEN 325 MG TAB PO SCH ×3 (01:33→08:22)
[2018-12-04] MEDS: ceFAZolin 2 GM/DEXTROSE 100 ML IV SCH (01:33)
[2018-12-04] MEDS: oxyCODONE IR 5 MG TAB PO PRN ×2 (05:15→12:02)
[2018-12-04] MEDS: CYCLOBENZAPRINE 10 MG TAB PO PRN (05:16)
[2018-12-04] MEDS: SENNOSIDES/DOCUSATE SODIUM TAB PO SCH (08:20)
[2018-12-04] MEDS: FAMOTIDINE 20 MG TAB PO SCH (08:21)
[2018-12-04] MEDS: ASPIRIN 81 MG CHEWABLE TAB PO SCH (08:21)
[2018-12-04 11:26] VITALS: BP 91/53
--- NOTE | 2018-12-04 11:29 | SOAPPROG ---
SOAP Progress Note Assessment/Plan: Assessment: s/p left CHELLE, anterior approach - POD 1 - doing better than expected Anemia - expected initially post-op Hyponatremia Hypotension Plan: 1L free fluid restriction - patient states she normally has low BP and sodium, recommended she follow up with her PCP regarding this issues d/c home tomorrow, will have the support of her at home Continue VTE ppx - aspirin 81 mg BIDx 4 weeks, VICKI hose x 2 weeks Continue oral pain medication - oxycodone, tylenol, celebrex, flexeril Continue PT - anterior hip precautions, WBAT Subjective: Patient states she is feeling pretty good, she feels comfortably enough to go home today. She reports having low BP and sodium in the past. She denies headaches, dizziness, lightheadedness, SOB, CP, fever, chills. Objective: Vital Signs Temp Pulse Resp BP Pulse Ox 37.4 C 60 16 88/53 L 94 12/04/18 08:00 12/04/18 08:00 12/04/18 08:00 12/04/18 08:00 12/04/18 08:00 Laboratory Results 12/04/18 04:30 12/04/18 04:30 12/03/18 12/04/18 12/05/18 05:59 05:59 05:59 Intake Total 3710 Output Total 3250 450 Balance 460 -450 Patient resting comfortably in bed, no acute distress. LLE: Wound dressings are clean, dry and intact. Skin intact, no signs of infection. Lower leg compartments are soft and nontender. She can actively DF and PF her left foot and great toe against resistance. Grossly NVI distally. ICD10 Worksheet Patient Problems: Problems Problem Status Onset Unilateral primary osteoarthritis, left hip Acute Diarrhea Acute Facial numbness Acute Headache Acute Hyponatremia Acute Lower GI bleed Acute
--- NOTE | 2018-12-04 11:34 | PDDCSUM ---
Discharge Summary Discharge Summary: ADMISSION DIAGNOSIS: Left hip severe degenerative arthritis DISCHARGE DIAGNOSIS: Left hip severe degenerative arthritis OPERATION PERFORMED: December 03, 2018 Left total hip arthroplasty, anterior approach POSTOPERATIVE COMPLICATIONS: None CONDITION ON DISCHARGE: Improved HPI: The patient is a 68 year old female who has end-stage arthritis of her left hip. Clinical and radiographic features are consistent with this. Patient has failed attempts at conservative management, therefore, recommended operative left total hip replacement. DESCRIPTION OF HOSPITAL COURSE: The patient was admitted to the hospital on the morning of surgery and underwent a left total hip arthroplasty, anterior approach. Postoperatively, patient was treated with multimodal DVT prophylaxis, including aspirin 81 mg BID, VICKI hose, SCDs. Patient was seen by PT and made good progress with ambulation and stairs. On the first post-operative day the patients H&H was 9.8/28.6. Patient was able to void spontaneously. At the time of discharge, patient was afebrile, wound was clean and dry. Patient is walking with a walker. DISPOSITION: The patient is discharged home and may have outpatient PT in approximately 3 weeks. Patient may progress to full weightbearing on the left lower extremity as tolerated. VICKI stockings for 2 weeks during the daytime. Aspirin 81 mg BID for 4 weeks. Patient has prescriptions for Celebrex, oxycodone , flexeril for pain control and muscle spasms. The patient will be seen by Dr. Morales office in approximately 3 weeks. If there are any problems, patient is to call Dr. Morales office.
--- NOTE | 2018-12-04 12:56 | GOP ---
[f rep st] OPERATIVE REPORT DATE OF OPERATION: 12/03/2018 SURGEON: Jimi Santa MD CHIEF BUILDING INSPECTOR: Amparo Peoples P.A.-c ANESTHESIA: Spinal. PREOPERATIVE DIAGNOSIS: Left hip osteoarthritis. POSTOPERATIVE DIAGNOSIS: Left hip osteoarthritis. PROCEDURE PERFORMED: Total hip arthroplasty with x-ray. FINDINGS: INDICATIONS: The patient has progressively worsening arthritis of the hip which has failed medical m anagement. The patient understands the treatment options including continued non-operative care and has selected surgical intervention. The patient has decided to undergo total hip arthroplasty via th e direct anterior approach, understanding the risks of the procedure including, but not limited to, n eurovascular injury, infection, persistent pain, component wear and loosening, deep venous thrombosis , pulmonary embolism, limb length inequality, hip instability (including dislocation), and intra-oper ative fractures. DESCRIPTION OF PROCEDURE: After proper identification of the patient including verification and neno ing the surgical site, the patient was brought to the operating room and placed in the supine positio n. All bony prominences were well padded. Anesthesia was induced without complication and intraveno us prophylactic antibiotics were administered prior to skin incision. The operative leg was placed in the Trumpf Arch table extension and the well leg in a Yellofin leg ho lder. The patient was prepped and draped in the usual sterile fashion. The C-arm was draped for int ra-operative fluoroscopy to check acetabular position, femoral component position including leg lengt h and femoral offset. Attention was then drawn to surgical exposure of the hip. An incision was made with a #10 Bard Jimenez r blade starting 3 cm lateral and 3 cm distal to the anterior superior iliac spine measuring 8-10 cm and coursing distally toward the greater trochanter. The skin and subcutaneous tissues were divided sharply down to the fascia jacoby. The fascia jacoby was incised in line with the skin incision exposing the underlying tensor fascia jacoby muscle. The muscle was bluntly elevated from the fascia and the f irst extracapsular Cobra retractor was placed laterally at the junction of the superior femoral neck and greater trochanter. The lateral femoral circumflex vessels were identified, cauterized, and divi ded with the Aquamantys bipolar cautery. The deep investing fascia of the TFL was divided to allow p marcia mobilization of the muscle preventing damage during the retraction. The reflected head of the rectus femoris muscle was elevated off the anterior hip capsule and a medial Cobra retractor was plac ed just proximal to the lesser trochanter. The anterior capsulotomy was made sharply from the superolateral acetabulum to the saddle junction of the superior femoral neck and greater trochanter, then coursing inferomedial towards the lesser troc hanter. The retractors were then placed in the intracapsular position for femoral neck osteotomy. C orresponding to pre-operative templating, the osteotomy was made with the oscillating saw carefully p rotecting the greater trochanter and soft tissues. The femoral head was removed from the acetabulum with a corkscrew and confirmed to be severely arthritic with exposed bone, deformity and osteophytes. Similar findings were confirmed in the acetabulum. The Arch table extension was then placed in 40 degrees external rotation. Attention was then drawn to the acetabular preparation. After placement of the anterior and posterio r Cobra retractors outside the labrum and intracapsular, the circumferential labrum was removed sharp ly. The foveal contents were then removed and hemostasis obtained with cautery. The first reamer selected was sized using the removed femoral head. Reaming began with medialization and then commenced in 2 mm increments at 45 degrees of abduction and 15 degrees of anteversion using fluoroscopic navigation. Reaming ceased 1 mm less than the definitive acetabular component and yamil esponded to the pre-operative templating. The final acetabular component was inserted using fluorosc opy to achieve proper orientation yielding excellent purchase and stability in the acetabulum. The f inal acetabular liner was then placed and its seating confirmed. Attention was then turned to the femur. The Arch table extension was placed in extension and adducti on, delivering the osteotomized femoral neck into the wound. A 2-pronged femoral elevator was placed at the calcar and another at the tip of the greater trochanter. The posterolateral capsule was rele ased with cautery allowing mobilization of the femur lateral and anterior for preparation. The exter nal rotators were visualized and preserved. A curette and rongeur were used to open the starting poi nt for broaching. Serial broaching started with the #0 broach and ended with the broach that exhibit ed excellent fit in the proximal femur. A change in pitch during mallet strikes was accompanied by t he inability to advance the broach any further. The trial reduction was performed and fluoroscopic n avigation was utilized to check limb length. Adjustments were made to equalize limb length according ly. After the final trials were accepted they were removed and the wound was copiously lavaged. The femo ral component was seated to the same depth as the final broach and the femoral head was impacted onto the clean trunnion. The hip was then reduced for the final time and once more fluoroscopy was used to check that limb length equality was achieved. The wound was irrigated and closed in layers, the fascia jacoby with 2-0 Quill, the subcutaneous tissue with 2-0 Quill, and the skin with Dermabond. Sterile dressings were applied. Final sharps and spon ge counts were accurate. The patient was then transferred to a hospital bed and brought to the [facility] room in stable condition. IMPLANTS: Accolade II, size 4 at 132. Acetabular component is a Trident II 50 mm. Liner is a Tride nt X3, 32 mm. Head with a Biolox Delta 32mm, -4. /[id number]/MODL
--- NOTE | 2018-12-04 13:57 | ASMTLACE ---
ALEXE Length of stay for Answers: 2 days current admission Acuity / Level of Answers: Yes Care: Did the patient have an inpatient admission? Comorbidities - select Answers: Opioid dependence all that apply / Chronic pain # of Emergency department Answers: 0 visits in the last 6 months Social determinants Answers: Mental health diagnosis (anxiety, depression, pers onality disorders, etc.) Score: 12 Date Signed: 12/04/2018 01:56 PM Electronically Signed By:JERSON Dickerson
== END 2018-12-04 12:19 | disposition home or self-care (01) | DRG 470 ==
LOC: F3N 09:16
PROVIDERS: ADMIT Orthopaedic Surgery; ATTEND Orthopaedic Surgery
PROC: 0SRB04Z Replacement of Left Hip Joint with Ceramic on Polyethylene Synthetic Substitute, Open Approach (ICD-10-PCS; principal; 2018-12-03 12:00)
DX: M16.12 Unilateral primary osteoarthritis, left hip (principal); D64.9 Anemia, unspecified; E87.1 Hypo-osmolality and hyponatremia; I95.9 Hypotension, unspecified
CPT/HCPCS: 97116-GP; 97161-GP; J0171; J0690; J1100; J1885; J2001; J2250; J2370; J2405; J2704; J2795; J3010; J3370

== ENCOUNTER 2019-01-15 12:51 | Emergency (ER) | payer OTHER | END 2019-01-15 15:55 | disposition home or self-care (01) ==

== ENCOUNTER → 2019-01-26 | Outpatient (CLI) | payer OTHER | LOC: FIMAGING 14:06 ==

== ENCOUNTER 2019-01-29 16:36 | Emergency (ER) | payer OTHER | END 2019-01-29 18:32 | disposition home or self-care (01) ==